=== PATIENT | male | born 1990 | race Hispanic/Latino ===

== ENCOUNTER 2020-05-12 11:55 | Emergency (ER) | payer SELFPAY ==
--- NOTE | 2020-05-12 14:24 | ER ---
Nurse's Notes [facility] Name: Bruno Flanagan Age: 29 yrs Sex: Male : 1990 Arrival Date: 05/12/2020 Time: 11:56 Bed Waiting Private MD: Diagnosis: Presentation: 05/12 12:08 Chief complaint: Patient states: Slipped on ice yesterday. Small piece of "rebar" ll1 punctured into the palm of his hand. PMS intact. <2 cm laceration, no bleeding. Coronavirus screen: Client denies travel out of the [place] in the last 14 days. At this time, the client does not indicate any symptoms associated with coronavirus-19. Ebola Screen: Patient denies travel to an Ebola-affected area in the 21 days before illness onset. Complicating Factors: Glass or an other foreign body is present in the wound. Initial Sepsis Screen: Does the patient meet any 2 criteria? No. Patient's initial sepsis screen is negative. Does the patient have a suspected source of infection? Yes: Skin breakdown/wound. Risk Assessment: Do you want to hurt yourself or someone else? Patient reports no desire to harm self or others. Onset of symptoms was May 11, 2020. 12:08 Method Of Arrival: Ambulatory ll1 12:08 Acuity: LAMAR 4 ll1 Historical: - Allergies: 12:10 No Known Allergies; ll1 - PMHx: 12:10 None; ll1 - PSHx: 12:10 L hand; ll1 - Immunization history:: Last tetanus immunization: > 10 years ago Flu vaccine is not up to date. - Social history:: Smoking status: Patient reports the use of cigarette tobacco products, smokes one-half pack cigarettes per day. Vital Signs: 12:08 BP 115 / 74; Pulse 86; Resp 17; Temp 98.3; Pulse Ox 98% ; Weight 86.18 kg; Height 6 ft. ll1 1 in. (185.42 cm); Pain 8/10; 12:08 Body Mass Index 25.07 (86.18 kg, 185.42 cm) ll1 ED Course: 11:56 Patient arrived in ED. as 12:09 Triage completed. ll1 12:10 Arm band placed on. ll1 14:16 Blake Piña PA is PHCP. 8 14:16 Mina Elaine MD is Attending Physician. jr8 Administered Medications: No medications were administered Outcome: 14:24 Patient left the ED. tw2 14:33 Patient left the ED. hb Signatures: Taylor Michelle Josh, PA PA jr8 Lacie Bruce RN RN Indira Ramsey RN RN tw2 Cliff Moya RN RN ll1
[2020-05-12 15:14] VITALS: BP 115/74; TEMP 98.3; O2SAT 98
== END 2020-05-12 14:33 | disposition left against medical advice (07) ==
LOC: ER 11:55
DX: Z53.21 Procedure and treatment not carried out due to patient leaving prior to being seen by health care provider (principal)
CPT/HCPCS: 99281

== ENCOUNTER 2021-07-07 15:16 | Emergency (ER) | payer BC ==
--- OUTSIDE RECORDS SUMMARY | 2021-07-07 15:18 | XMS REPORT | Continuity of Care Document ---
:1990 Author Organization [facility] t Address [address] [place] [address] Care Team Providers Name Role Phone RACHANA RUFFIN Attending Clinician Unavailable Problems This patient has no known problems. Allergies, Adverse Reactions, Alerts Allergy Allergy Status Severity Reaction(s) Onset Inactive Treating Comm ents Source Name Type Date Date Clinician NO KNOWN Drug Active [facility] Medications This patient has no known medications. Procedures This patient has no known procedures. Encounters Start End Encounter Admission Attending Care Care Encounter Source Date/Time Date/Time Type Type Clinicians Facility Department ID 2020-05-12 2020-05-12 Emergency X MIKALA RUFFIN ERT [id number] [facility] 14:34:00 14:34:00 RACHANA [facility] Results This patient has no known results.
[2021-07-07] MEDS ORDERED: ONDANSETRON 4 MG (ODT) TAB ONE (15:28)
[2021-07-07] MEDS ORDERED: FAMOTIDINE 20 MG/2 ML VIAL IV ONE (17:29)
[2021-07-07] MEDS ORDERED: ONDANSETRON 4 MG/2 ML VIAL ONE (17:29)
[2021-07-07] MEDS ORDERED: Ringers Lactate 1,000 ML IV ONE (17:29)
[2021-07-07 17:30] LABS: Hematocrit 48.2 % (39.6-49.0); Lymphocytes % 8.8 % (15.3-44.8); MPV 8.1 fL (7.6-11.3); RBC Red Blood Cell Count 4.88 M/uL (4.33-5.43)
[2021-07-07 17:45] LABS: Albumin 4.9 g/dL (3.4-5.0); Bilirubin Total 0.9 mg/dL (0.2-1.0)
--- NOTE | 2021-07-07 18:40 | ER ---
Nurse's Notes [facility] Name: Bruno Flanagan Age: 30 yrs Sex: Male : 1990 Arrival Date: 07/07/2021 Time: 15:18 Bed 10 Private MD: Diagnosis: Vomiting Presentation: 07/07 15:22 Chief complaint: Patient states: "I drank too much last night on any empty stomach." Pt ab2 states he drank less than a 12 pack of beers last night. This morning patient has not been able to keep anything down. Pt denies pain. Pt c/o shaking and vomiting. Coronavirus screen: Vaccine status: Patient reports being unvaccinated. Client denies travel out of the [place] in the last 14 days. At this time, the client does not indicate any symptoms associated with coronavirus-19. Ebola Screen: Patient negative for fever greater than or equal to 101.5 degrees Fahrenheit, and additional compatible Ebola Virus Disease symptoms Patient denies exposure to infectious person. Patient denies travel to an Ebola-affected area in the 21 days before illness onset. No symptoms or risks identified at this time. Initial Sepsis Screen: Does the patient meet any 2 criteria? No. Patient's initial sepsis screen is negative. Does the patient have a suspected source of infection? No. Patient's initial sepsis screen is negative. Risk Assessment: Do you want to hurt yourself or someone else? Patient reports no desire to harm self or others. Onset of symptoms is unknown. 15:22 Method Of Arrival: Ambulatory ab2 15:22 Acuity: LAMAR 4 ab2 17:25 Acuity: LAMAR 3 iw Triage Assessment: 15:26 General: Appears in no apparent distress. uncomfortable, Behavior is calm, cooperative, ab2 appropriate for age. Pain: Denies pain. Neuro: Level of Consciousness is awake, alert, obeys commands, Oriented to person, place, time, situation, Appropriate for age Wwe Wrestler are equal bilaterally Moves all extremities. Gait is steady, Speech is normal, Facial symmetry appears normal. Cardiovascular: No deficits noted. Denies chest pain, shortness of breath, Heart tones S1 S2 present Patient's skin is warm and dry. Respiratory: Airway is patent Respiratory effort is even, unlabored, Respiratory pattern is regular, symmetrical, Breath sounds are clear bilaterally. GI: Abdomen is round non-distended, Bowel sounds present X 4 quads. Reports nausea, vomiting, Patient currently denies abdominal pain. : No deficits noted. No signs and/or symptoms were reported regarding the genitourinary system. Derm: Skin is intact, is healthy with good turgor, Skin is pink, warm \\T\\ dry. Historical: - Allergies: 15:26 No Known Allergies; ab2 - PMHx: 15:26 None; ab2 - PSHx: 15:26 None; ab2 - Immunization history:: Adult Immunizations up to date. - Social history:: Smoking status: Patient reports the use of cigarette tobacco products, smokes one-half pack cigarettes per day. Screenin:27 Abuse screen: Denies threats or abuse. Denies injuries from another. Nutritional ab2 screening: No deficits noted. Tuberculosis screening: No symptoms or risk factors identified. Fall Risk None identified. Assessment: 17:25 Reassessment: pt still vomiting. iw 18:01 Reassessment: Patient appears in no apparent distress at this time. Patient and/or iw family updated on plan of care and expected duration. Pain level reassessed. Patient is alert, oriented x 3, equal unlabored respirations, skin warm/dry/pink. Patient states feeling better. Patient states symptoms have improved. 18:31 Reassessment: Patient appears in no apparent distress at this time. Patient and/or iw family updated on plan of care and expected duration. Pain level reassessed. Patient is alert, oriented x 3, equal unlabored respirations, skin warm/dry/pink. pt given water for PO challenge. Vital Signs: 15:22 BP 116 / 72; Pulse 63; Resp 17; Temp 97.5(TE); Pulse Ox 98% on R/A; Weight 86.18 kg; ab2 Height 6 ft. 0 in. (182.88 cm); Pain 0/10; 15:22 Body Mass Index 25.77 (86.18 kg, 182.88 cm) ab2 ED Course: 15:18 Patient arrived in ED. am2 15:21 Ramin Bhandari PA is PHCP. [facility] 15:21 José Turk DO is Attending Physician. jmm 15:26 Triage completed. ab2 15:26 Arm band placed on left wrist. ab2 15:27 No provider procedures requiring assistance completed. ab2 17:04 Lorraine Fischer, RN is Primary Nurse. iw 17:25 Initial lab(s) drawn, by me, sent to lab. Inserted saline lock: 20 gauge in right iw antecubital area, using aseptic technique. Blood collected. 17:27 CBC with Diff Sent. ab2 17:27 CMP Sent. ab2 17:27 Lipase Sent. ab2 17:30 Patient has correct armband on for positive identification. Bed in low position. Call ab2 light in reach. Side rails up X2. 18:45 IV discontinued, intact, bleeding controlled, No redness/swelling at site. Pressure iw dressing applied. Administered Medications: 15:27 Drug: Ondansetron 4 mg Route: PO; ab2 17:29 Drug: Lactated Ringers Solution 1000 ml Route: IV; Rate: 1000 bolus; Site: right ab2 antecubital; 17:30 Drug: Pepcid (famotidine) 20 mg Route: IVP; Site: right antecubital; ab2 17:30 Drug: Zofran (Ondansetron) 4 mg Route: IVP; Site: right antecubital; ab2 Outcome: 18:39 Discharge ordered by . fabián 18:45 Discharged to home ambulatory, with family. iw 18:45 Condition: good 18:45 Discharge instructions given to patient, Instructed on discharge instructions, follow up and referral plans. medication usage, Demonstrated understanding of instructions, follow-up care, medications, Prescriptions given X 1. 18:45 Patient left the ED. Signatures: Ramin Bhandari PA PA jmm Williams, Irene, RN RN Krystyna Bermudez Alexis ab2
--- NOTE | 2021-07-07 18:40 | EDPHYS ---
Physician Documentation [facility] Name: Bruno Flanagan Age: 30 yrs Sex: Male : 1990 Arrival Date: 07/07/2021 Time: 15:18 Bed 10 Private MD: ED Physician José Turk HPI: 07/07 15:24 This 30 yrs old Male presents to ER via Ambulatory with complaints of jmm Vomiting, shaky. 15:24 The patient presents to the emergency department with nausea, vomiting. Onset: The jmm symptoms/episode began/occurred acutely, today. Possible causes: alcohol. The symptoms are aggravated by nothing. The symptoms are alleviated by nothing. This is a 30 year old male with no chronic medical conditions that presents to the ED with complaints of vomiting, nausea. Patient states he drank too much ETOH last night. Patient states also feeling fatigued and shakey. Denies abdominal pain, diarrhea. . Historical: - Allergies: 15:26 No Known Allergies; ab2 - PMHx: 15:26 None; ab2 - PSHx: 15:26 None; ab2 - Immunization history:: Adult Immunizations up to date. - Social history:: Smoking status: Patient reports the use of cigarette tobacco products, smokes one-half pack cigarettes per day. ROS: 15:24 Constitutional: Negative for fever, chills, and weight loss, Cardiovascular: Negative jmm for chest pain, palpitations, and edema, Respiratory: Negative for shortness of breath, cough, wheezing, and pleuritic chest pain. 15:24 Abdomen/GI: Positive for vomiting. 15:24 All other systems are negative. Exam: 15:24 Constitutional: This is a well developed, well nourished patient who is awake, alert, jmm and in no acute distress. Head/Face: atraumatic. Eyes: EOMI, no conjunctival erythema appreciated ENT: Moist Mucus Membranes Neck: Trachea midline, Supple Chest/axilla: Normal chest wall appearance and motion. Cardiovascular: Regular rate and rhythm. No edema appreciated Respiratory: Normal respirations, no respiratory distress appreciated Abdomen/GI: Non distended, soft Back: Normal ROM 15:24 Skin: General appearance color normal MS/ Extremity: Moves all extremities, no obvious deformities appreciated, no edema noted to the lower extremities Neuro: Awake and alert Psych: Behavior is normal, Mood is normal, Patient is cooperative and pleasant 15:24 Abdomen/GI: Inspection: abdomen appears normal, Bowel sounds: normal, Palpation: abdomen is soft and non-tender, in all quadrants. Vital Signs: 15:22 BP 116 / 72; Pulse 63; Resp 17; Temp 97.5(TE); Pulse Ox 98% on R/A; Weight 86.18 kg; ab2 Height 6 ft. 0 in. (182.88 cm); Pain 0/10; 15:22 Body Mass Index 25.77 (86.18 kg, 182.88 cm) ab2 MDM: 15:24 Patient medically screened. [facility] 18:38 Data reviewed: vital signs, nurses notes. Counseling: I had a detailed discussion with [facility] the patient and/or guardian regarding: the historical points, exam findings, and any diagnostic results supporting the discharge/admit diagnosis, the need for outpatient follow up, to return to the emergency department if symptoms worsen or persist or if there are any questions or concerns that arise at home. ED course: Patient states feeling much better. No abdominal pain on palpation. patient advised to follow up with pcp and otherwise given strict return precautions. Patient understood and agrees with the plan of care. . 07/07 17:01 Order name: CBC with Diff; Complete Time: 17:35 [facility] 07/07 17:01 Order name: CMP; Complete Time: 17:48 [facility] 07/07 17:01 Order name: Lipase; Complete Time: 17:48 [facility] 07/07 16:20 Order name: PO challenge; Complete Time: 17:29 [facility] 07/07 17:01 Order name: IV Saline Lock; Complete Time: 17:27 [facility] 07/07 17:01 Order name: Labs collected and sent; Complete Time: 17:27 [facility] Administered Medications: 15:27 Drug: Ondansetron 4 mg Route: PO; ab2 17:29 Drug: Lactated Ringers Solution 1000 ml Route: IV; Rate: 1000 bolus; Site: right ab2 antecubital; 17:30 Drug: Pepcid (famotidine) 20 mg Route: IVP; Site: right antecubital; ab2 17:30 Drug: Zofran (Ondansetron) 4 mg Route: IVP; Site: right antecubital; ab2 Disposition: 07/08 15:33 Co-signature as Attending Physician, José Turk DO I was immediately available on-site ms3 in the Emergency Department for consultation in the care of the patient.. Disposition Summary: 07/07/21 18:39 Discharge Ordered Location: Home fabián Condition: Stable jordana Diagnosis - Vomiting jm Followup: jmartie - With: Private Physician - When: 2 - 3 days - Reason: Recheck today's complaints, Continuance of care, Re-evaluation by your physician Discharge Instructions: - Discharge Summary Sheet jordana - Vomiting, Adult jordana Forms: - Medication Reconciliation Form [facility] - Thank You Letter fabián - Antibiotic Education jordana - Prescription Opioid Use jordana Prescriptions: - ondansetron 4 mg Oral tablet,disintegrating - take 1 tablet by ORAL route every 4-6 hours; 20 tablet; Refills: 0, Product [facility] Selection Permitted Signatures: Dispatcher [employer] EDRamin Kelley PA PA jmm Sims, Marcus, DO DO ms3 Jay Meek2
[2021-07-07 20:34] VITALS: BP 116/72; TEMP 97.5; O2SAT 98
== END 2021-07-07 18:45 | disposition home or self-care (01) ==
LOC: ER 15:16
DX: R11.10 Vomiting, unspecified (principal); F17.210 Nicotine dependence, cigarettes, uncomplicated
CPT/HCPCS: 85025; 36415; 83690; 80053; 96375; 96374; 99284; J7120; J2405

== ENCOUNTER 2024-06-28 01:18 | Emergency (ER) | payer SELFPAY ==
[2024-06-28 02:26] LABS: Absolute Basophils 0.1 K/uL (0-0.5); Absolute Eosinophils 0.1 K/uL (0-0.5); Absolute Lymphocytes (CBC) 1.3 K/uL (0.7-4.9); Absolute Monocytes 0.8 K/uL (0.1-1.3); Absolute Neutrophil 4.8 K/uL (1.8-8.0); Basophils % 1.2 % (0-1.3); Eosinophils % 1.8 % (0-4.4); Hematocrit 43.7 % (39.6-49.0); Hemoglobin 15.4 g/dL (13.6-17.9); Lymphocytes % 17.9 % (15.3-44.8); MCHC 35.3 g/dL (32.0-36.0); MCV 99.2 fL (80-100); MPV 8.2 fL (7.6-11.3); Monocytes % 11.1 % (3.3-12.3); Nucleated Red Blood Cells % 0.1 % (0-0); Platelets 224 thou/uL (152-406); RBC Red Blood Cell Count 4.41 M/uL (4.33-5.43); Red Cell Distribution Width 12.9 % (12.1-15.2)
[2024-06-28 02:27] LABS: PT Prothrombin Time 11.7 SECONDS (10-13.0); Protime INR 1.03
[2024-06-28 03:33] LABS: ALT/SGPT 15 U/L (16-61); AST/SGOT 13 U/L (15-37); Albumin 4.1 g/dL (3.4-5.0); Alkaline Phosphatase 98 U/L (45-117); Anion Gap 12.7 mEq/L (5.0-15.0); BUN Blood Urea Nitrogen 7 mg/dL (7-18); Bicarbonate 23 mEq/L (21-32); Bilirubin Direct < 0.2 mg/dL (0-0.2); Bilirubin Indirect, Calculated 0.2 mg/dL (0.2-0.8); Bilirubin Total 0.4 mg/dL (0.2-1.0); Glomerular Filtration Rate 117 ml/min (=/>90); Glucose Level 89 mg/dL (74-106); Potassium 3.7 mEq/L (3.5-5.1); Protein, Total 8.1 g/dL (6.4-8.2); Sodium Level 142 mEq/L (136-145)
--- NOTE | 2024-06-28 03:59 | EDPHYS ---
Physician Documentation [facility] Name: Bruno Flanagan Age: 33 yrs Sex: Male : 1990 Arrival Date: 06/28/2024 Time: 01:18 Bed 15 Private MD: ED Physician Mina Elaine HPI: 06/28 01:40 This 33 yrs old Male presents to ER via EMS with complaints of Suicidal cp Ideation. 01:40 The patient presents to the emergency department with suicide ideation. cp 01:40 Onset: The symptoms/episode began/occurred today. cp 01:40 Past psychiatric history: Prior diagnosis: bipolar disorder, depression. Associated cp signs and symptoms: Pertinent negatives: abdominal pain, delusions, hallucinations, headache, homicidal ideation, paranoia. Severity of symptoms: in the emergency department the symptoms are unchanged despite home interventions. Historical: - Allergies: 01:25 No Known Allergies; vc1 - Home Meds: 01:25 Klonopin 1 mg Oral tab 1 tab 3 times per day [Active]; Lexapro 10 mg Oral tab 1 tab vc1 once daily [Active]; - PMHx: 01:37 Anxiety; Bipolar disorder; Depressive disorder; br2 - PSHx: 01:25 arm; vc1 - Immunization history:: Adult Immunizations not up to date. - Infectious Disease History:: Denies. - Social history:: Smoking status: Patient uses alcohol, on a daily basis. street drugs, marijuana. ROS: 01:45 Constitutional: Negative for body aches, chills, fever, poor PO intake, cp 01:45 Eyes: Negative for injury, pain, redness, and discharge, cp 01:45 ENT: Negative for drainage from ear(s), ear pain, sore throat, difficulty swallowing, difficulty handling secretions, 01:45 Cardiovascular: Negative for chest pain, palpitations, 01:45 Respiratory: Negative for cough, shortness of breath, wheezing, 01:45 Neuro: Negative for altered mental status, dizziness, headache, weakness, 01:45 Psych: Positive for suicidal ideation, 01:45 All other systems are negative, Exam: 01:43 ECG was reviewed by the Attending Physician. cp 01:48 Head/Face: Normocephalic, atraumatic. cp 01:48 Constitutional: The patient appears in no acute distress, alert, awake, non-diaphoretic, non-toxic, well developed, well nourished, 01:48 Eyes: Periorbital structures: appear normal, Conjunctiva: normal, no exudate, no injection, Sclera: no appreciated abnormality, Lids and lashes: appear normal, bilaterally, 01:48 ENT: External ear(s): are unremarkable, Nose: is normal, Mouth: Lips: moist, Oral mucosa: moist, Posterior pharynx: Airway: no evidence of obstruction, patent, 01:48 Chest/axilla: Inspection: normal, 01:48 Cardiovascular: Rate: normal, Rhythm: regular, Edema: is not appreciated, JVD: is not appreciated, 01:48 Respiratory: the patient does not display signs of respiratory distress, Respirations: normal, no use of accessory muscles, no retractions, labored breathing, is not present, Breath sounds: are clear throughout, no decreased breath sounds, no stridor, no wheezing, 01:48 Abdomen/GI: Inspection: abdomen appears normal, Palpation: abdomen is soft and non-tender, in all quadrants, 01:48 Neuro: Orientation: to person, place \T\ time. Mentation: is normal, Cerebellar function: is grossly normal, Motor: moves all fours, strength is normal, Sensation: is normal, Vital Signs: 01:33 BP 117 / 81; Pulse 84; Resp 18; Temp 97.4(TE); Pulse Ox 95% on R/A; Weight 81.65 kg; br2 Height 6 ft. 1 in. ; Pain 0/10; 12:20 BP 138 / 80; Pulse 64; Resp 20; Pulse Ox 100% ; kj2 12:20 Temp 98.1; kj2 21:31 BP 140 / 89; Pulse 70; Resp 18; Pulse Ox 93% on R/A; oe 22:35 BP 138 / 86; Pulse 72; Resp 20; Temp 98; Pulse Ox 100% on R/A; kj2 01:33 Body Mass Index 23.75 (81.65 kg, 185.42 cm) br2 01:33 Pain Scale: Adult br2 MDM: 01:25 Medical Screening Exam initiated cp 02:00 Differential diagnosis: drug withdrawal. acute psychotic break, depression, psychosis cp secondary to non-compliance. 04:00 Data reviewed: vital signs, nurses notes, lab test result(s). cp 22:20 ED course: VSS. Patient able to make informed decisions and reports he is no longer cp suicidal and requests discharge. 22:20 Independent interpretation of the following test(s) in the Emergency Department EKG: cp See my EKG interpretation above. Counseling: I had a detailed discussion with the patient and/or guardian regarding the historical points, exam findings, and any diagnostic results supporting the discharge/admit diagnosis, lab results, the need for outpatient follow up, a psychiatrist, to return to the emergency department if symptoms worsen or persist or if there are any questions or concerns that arise at home. Response to treatment: the patient's symptoms have markedly improved after treatment. 06/28 01:35 Order name: Acetaminophen; Complete Time: 03:54 cp 06/28 01:35 Order name: Basic Metabolic Panel; Complete Time: 03:54 cp 06/28 01:35 Order name: CBC with Diff; Complete Time: 03:54 cp 06/28 01:35 Order name: ETOH Level; Complete Time: 03:54 cp 06/28 01:35 Order name: Hepatic Function; Complete Time: 03:54 cp 06/28 01:35 Order name: PT-INR; Complete Time: 03:54 cp 06/28 01:35 Order name: Ptt, Activated; Complete Time: 03:54 cp 04 01:35 Order name: Salicylate; Complete Time: 03:54 cp 04 01:35 Order name: Urinalysis w/ reflexes cp 06/28 01:35 Order name: Urine Drug Screen; Complete Time: 10:00 cp 06/28 01:35 Order name: EKG - Nurse/Tech; Complete Time: 02:14 cp 06/28 01:35 Order name: IV Saline Lock; Complete Time: 02:14 cp 06/28 01:35 Order name: Labs collected and sent; Complete Time: 02:14 cp 06/28 01:35 Order name: Suicide Precautions; Complete Time: 02:14 cp 06/28 01:35 Order name: Suicide Screening (Porum); Complete Time: 02:14 cp EC:43 Rate is 50 beats/min. Rhythm is regular. VA interval is normal. QRS interval is normal. cp QT interval is normal. T waves are Inverted in lead aVR. Interpreted by me. Reviewed by me. Administered Medications: 04:09 Drug: NS 0.9% IV 1000 ml IV at 1000 ml once; to be given as a bolus over 60 minutes vc1 Route: IV; Rate: 1000 ml; Site: right forearm; 05:02 Follow up: IV Status: Completed infusion; IV Intake: 1000ml vc1 Disposition: 06/29 02:09 Co-signature as Attending Physician, Mina Elaine MD I agree with the assessment and hina plan of care. Disposition Summary: 06/28/24 22:22 Discharge Ordered Notes: Location: Home cp Problem: an ongoing problem(06/28/24 22:22) cp Symptoms: have improved(06/28/24 22:22) cp Condition: Stable(06/28/24 22:22) cp Diagnosis - Other recurrent depressive disorders cp Followup: cp - With: Santiago Aguilar MD - When: 2 - 3 days - Reason: Recheck today's complaints Discharge Instructions: - Discharge Summary Sheet cp - Suicidal Feelings: How to Help Yourself cp - Helping Someone Who is Suicidal cp - Supporting Someone With Depression cp - Managing Depression, Adult cp Forms: - Medication Reconciliation Form cp - Antibiotic Education cp - Prescription Opioid Use cp - Patient Portal Instructions cp - Leadership Thank You Letter cp Signatures: Dispatcher [employer] Mina Heredia MD MD cha Page, Corey, PA PA cp Calcote, Vanessa, RN RN vc1 Adelaida Ashley PA-C PAMalachi sb4 Vonda Lozoya RN RN br2 Corrections: (The following items were deleted from the chart) 06/28 01:36 01:35 ACETAMINOPHEN+C.LAB.BRZ ordered. EDMS EDMS 01:36 01:35 BASIC METABOLIC PANEL+C.LAB.BRZ ordered. EDMS EDMS 01:36 01:35 CBC+H.LAB.BRZ ordered. EDMS EDMS 01:36 01:35 ETHANOL+C.LAB.BRZ ordered. EDMS EDMS 01:36 01:35 HEPATIC FUNCTION+C.LAB.BRZ ordered. EDMS EDMS 01:36 01:36 PROTIME (+INR)+COAG.LAB.BRZ ordered. EDMS EDMS 01:36 01:36 PTT, ACTIVATED+COAG.LAB.BRZ ordered. EDMS EDMS 01:36 01:36 SALICYLATE+C.LAB.BRZ ordered. EDMS EDMS 01:36 01:36 Urinalysis+U.LAB.BRZ ordered. EDMS EDMS :36 01:36 URINE DRUG SCREEN+UC.LAB.BRZ ordered. EDMS EDMS 05:06/27 01:48 Constitutional: The patient appears in no acute distress, alert, awake, cp non-diaphoretic, non-toxic, well developed, well nourished, cp 06/28 05:06/27 01:48 Head/Face: Normocephalic, atraumatic. cp cp 06/28 05:06/27 01:48 Eyes: Periorbital structures: appear normal, Conjunctiva: normal, no cp exudate, no injection, Sclera: no appreciated abnormality, Lids and lashes: appear normal, bilaterally, cp 06/28 05:06/27 01:48 ENT: External ear(s): are unremarkable, Nose: is normal, Mouth: Lips: cp moist, Oral mucosa: moist, Posterior pharynx: Airway: no evidence of obstruction, patent, cp 06/28 05:06/27 01:48 Chest/axilla: Inspection: normal, cp cp 04/ 05: 04 01:48 Cardiovascular: Rate: normal, Rhythm: regular, Edema: is not appreciated, cp JVD: is not appreciated, cp / 05:06/27 01:48 Respiratory: the patient does not display signs of respiratory distress, cp Respirations: normal, no use of accessory muscles, no retractions, labored breathing, is not present, Breath sounds: are clear throughout, no decreased breath sounds, no stridor, no wheezing, cp 06/28 05:06/27 01:48 Abdomen/GI: Inspection: abdomen appears normal, Palpation: abdomen is soft cp and non-tender, in all quadrants, cp 06/28 04:06/27 01:48 Neuro: Orientation: to person, place \T\ time. Mentation: is normal, cp Cerebellar function: is grossly normal, Motor: moves all fours, strength is normal, Sensation: is normal, cp 04/ 22:22 03:59 doctor cp cp 22:22 03:59 Psych Facility cp cp 22:22 03:59 Higher level of care cp cp 22:22 03:59 Stable cp cp 22:22 03:59 new cp cp 03:59 are unchanged cp cp 03:59 Suicidal ideations cp cp
--- NOTE | 2024-06-28 03:59 | ER ---
Nurse's Notes [facility] [employer] Name: Bruno Flanagan Age: 33 yrs Sex: Male : 1990 Arrival Date: 06/28/2024 Time: 01:18 Bed 15 Private MD: Diagnosis: Other recurrent depressive disorders Presentation: 06/28 01:33 Chief complaint: Patient states: PT WAS AT A [employer]AS STATION AND CALLED [facility] BECAUSE br2 HE DIDIN'T WANT TO HURT HIMSELF. PT STATES HE ALWAYS FEELS SUICIDAL BUT IT WAS WORSE TONIGHT. PT ADMITS TO ETOH AND MARIJUANA, PT DENIES A PLAN, BUT ATTEMPTED TO HANG HIMSELF APPROX 1-2 YEARS. Coronavirus screen: Client denies travel out of the [place] in the last 14 days. Ebola Screen: Patient denies exposure to infectious person. Initial Sepsis Screen: Does the patient meet any 2 criteria? No. Patient's initial sepsis screen is negative. Does the patient have a suspected source of infection? No. Patient's initial sepsis screen is negative. Onset of symptoms was June 28, 2024 at 00:45. 01:33 Method Of Arrival: EMS: [facility] br2 01:33 Acuity: LAMAR 2 vc1 01:33 Risk Assessment: Do you want to hurt yourself or someone else? Patient reports br2 desire/thoughts of hurting themselves or someone else. Provider notified. Triage Assessment: 01:37 General: Appears uncomfortable, Behavior is calm, cooperative. Pain: Denies pain. br2 Historical: - Allergies: 01:25 No Known Allergies; vc1 - Home Meds: 01:25 Klonopin 1 mg Oral tab 1 tab 3 times per day [Active]; Lexapro 10 mg Oral tab 1 tab vc1 once daily [Active]; - PMHx: 01:37 Anxiety; Bipolar disorder; Depressive disorder; br2 - PSHx: 01:25 arm; vc1 - Immunization history:: Adult Immunizations not up to date. - Infectious Disease History:: Denies. - Social history:: Smoking status: Patient uses alcohol, on a daily basis. street drugs, marijuana. Screenin:25 [facility] ED Fall Risk Assessment (Adult) History of falling in the last 3 months, vc1 including since admission No falls in past 3 months (0 pts) Confusion or Disorientation No (0 pts) Intoxicated or Sedated Yes (3 pts) Impaired Gait No (0 pts) Mobility Assist Device Used No (0 pt) Altered Elimination No (0 pt) Score/Fall Risk Level 3 or more points = High Risk Oriented to surroundings, Maintained a safe environment, Educated pt \\T\\ family on fall prevention, incl call for assistance when getting out of bed, Offered frequent toileting (1:1 observation), Utilized family, sitter, or virtual panel sewer as indicated. Abuse screen: Denies threats or abuse. Nutritional screening: No deficits noted. Tuberculosis screening: No symptoms or risk factors identified. Assessment: 01:25 General: Appears in no apparent distress. uncomfortable, well groomed, Behavior is vc1 cooperative, anxious, Smells of alcohol. Pain: Complains of pain in left wrist Pain does not radiate. Neuro: Level of Consciousness is awake, alert, obeys commands, Oriented to person, place, time, situation, Appropriate for age. Cardiovascular: Capillary refill < 3 seconds. Cardiovascular: Heart tones S1 S2 present. Respiratory: Airway is patent Respiratory effort is even, unlabored, Respiratory pattern is regular, symmetrical, Breath sounds are clear bilaterally. GI: No deficits noted. No signs and/or symptoms were reported involving the gastrointestinal system. : No deficits noted. No signs and/or symptoms were reported regarding the genitourinary system. EENT: No deficits noted. No signs and/or symptoms were reported regarding the EENT system. Derm: Skin is intact, is healthy with good turgor, Skin is dry, Skin is normal, Skin temperature is warm. Musculoskeletal: Circulation, motion, and sensation intact. Range of motion: intact in all extremities. 03:53 Reassessment: Patient and/or family updated on plan of care and expected duration. Pain vc1 level reassessed. pt resting comfortably, no complaints at this time. 05:40 General: [place] at bedside. vc1 07:00 Reassessment: pt with eyes closed, respirations even and unlabored. easy to awake. kc6 08:00 Reassessment: Patient appears in no apparent distress at this time. No changes from kc6 previously documented assessment. Patient and/or family updated on plan of care and expected duration. Pain level reassessed. Patient is alert, oriented x 3, equal unlabored respirations, skin warm/dry/pink. 09:00 Reassessment: Patient appears in no apparent distress at this time. No changes from kc6 previously documented assessment. Patient and/or family updated on plan of care and expected duration. Pain level reassessed. Patient is alert, oriented x 3, equal unlabored respirations, skin warm/dry/pink. 10:00 Reassessment: Patient appears in no apparent distress at this time. No changes from kc6 previously documented assessment. Patient and/or family updated on plan of care and expected duration. Pain level reassessed. Patient is alert, oriented x 3, equal unlabored respirations, skin warm/dry/pink. 11:00 Reassessment: Patient appears in no apparent distress at this time. No changes from kc6 previously documented assessment. Patient and/or family updated on plan of care and expected duration. Pain level reassessed. Patient is alert, oriented x 3, equal unlabored respirations, skin warm/dry/pink. 12:00 Reassessment: Patient appears in no apparent distress at this time. No changes from kc6 previously documented assessment. Patient and/or family updated on plan of care and expected duration. Pain level reassessed. Patient is alert, oriented x 3, equal unlabored respirations, skin warm/dry/pink. 12:09 Reassessment: Patient appears in no apparent distress at this time. Patient and/or kj2 family updated on plan of care and expected duration. Pain level reassessed. Patient is alert, oriented x 3, equal unlabored respirations, skin warm/dry/pink. 13:00 Reassessment: Patient appears in no apparent distress at this time. Patient and/or kj2 family updated on plan of care and expected duration. Pain level reassessed. Patient is alert, oriented x 3, equal unlabored respirations, skin warm/dry/pink. 14:00 Reassessment: Patient appears in no apparent distress at this time. Patient and/or kj2 family updated on plan of care and expected duration. Pain level reassessed. Patient is alert, oriented x 3, equal unlabored respirations, skin warm/dry/pink. 15:00 Reassessment: Patient appears in no apparent distress at this time. Patient and/or kj2 family updated on plan of care and expected duration. Pain level reassessed. Patient is alert, oriented x 3, equal unlabored respirations, skin warm/dry/pink. 16:00 Reassessment: Patient appears in no apparent distress at this time. Patient and/or kj2 family updated on plan of care and expected duration. Pain level reassessed. Patient is alert, oriented x 3, equal unlabored respirations, skin warm/dry/pink. 17:00 Reassessment: Patient appears in no apparent distress at this time. Patient and/or kj2 family updated on plan of care and expected duration. Pain level reassessed. Patient is alert, oriented x 3, equal unlabored respirations, skin warm/dry/pink. 18:00 Reassessment: Patient appears in no apparent distress at this time. Patient and/or kj2 family updated on plan of care and expected duration. Pain level reassessed. Patient is alert, oriented x 3, equal unlabored respirations, skin warm/dry/pink. 19:00 Reassessment: Patient appears in no apparent distress at this time. Patient and/or kj2 family updated on plan of care and expected duration. Pain level reassessed. Patient is alert, oriented x 3, equal unlabored respirations, skin warm/dry/pink. 20:00 Reassessment: Patient appears in no apparent distress at this time. Patient and/or kj2 family updated on plan of care and expected duration. Pain level reassessed. Patient is alert, oriented x 3, equal unlabored respirations, skin warm/dry/pink. 21:00 Reassessment: Patient appears in no apparent distress at this time. Patient and/or kj2 family updated on plan of care and expected duration. Pain level reassessed. Patient is alert, oriented x 3, equal unlabored respirations, skin warm/dry/pink. 22:00 Reassessment: Patient appears in no apparent distress at this time. Patient and/or kj2 family updated on plan of care and expected duration. Pain level reassessed. Patient is alert, oriented x 3, equal unlabored respirations, skin warm/dry/pink. 22:33 Reassessment: Patient appears in no apparent distress at this time. Patient and/or kj2 family updated on plan of care and expected duration. Pain level reassessed. Patient is alert, oriented x 3, equal unlabored respirations, skin warm/dry/pink. 22:35 Reassessment: patient is leaving with family. kj2 Psych: 01:25 [place] Suicide Severity Screening: In the past month, have you wished you were vc1 or wished you could go to sleep and not wake up? Patient responds "yes." "In the past month, have you actually had any thoughts of killing yourself?" Patient responds "yes." "In your lifetime, have you ever done anything, started to do anything, or prepared to do anything to end your life?" Patient responds "yes." Patient reports suicidal intent occurred greater than 3 months prior. 01:25 Subjective: Patient's mood is sad, Delusions are denied, Hallucinations are denied vc1 Having thoughts of suicide. Plan for suicide is "there is always a plan". Objective: Patient is cooperative, Speech is normal, Affect is appropriate. Interventions: Removed personal items and placed in bag. Patient placed in hospital gown. Searched person for dangerous items. Belonging list filled out. Safety Checks: Personal items have been removed. Door is open. No visitors are present at this time. Patient uses Patient uses marijuana Last use was smoked tonight. Commitment: Patient will be a voluntary commitment. 12:22 [place] Suicide Severity Screening: In the past month, have you wished you were kj2 or wished you could go to sleep and not wake up? Patient responds "yes." "In the past month, have you actually had any thoughts of killing yourself?" Patient responds "yes." "In your lifetime, have you ever done anything, started to do anything, or prepared to do anything to end your life?" Patient responds "yes.". Subjective: Patient's mood is hopeless. Objective: Patient is cooperative, Speech is normal, Affect is appropriate. Interventions: Patient reassessed during use of restraints. Patient is physically safe. Safety Checks: patient room close to nurse station and sitter present. Patient uses unknown amount. Commitment: Patient will be a voluntary commitment. Vital Signs: 01:33 BP 117 / 81; Pulse 84; Resp 18; Temp 97.4(TE); Pulse Ox 95% on R/A; Weight 81.65 kg; br2 Height 6 ft. 1 in. ; Pain 0/10; 12:20 BP 138 / 80; Pulse 64; Resp 20; Pulse Ox 100% ; kj2 12:20 Temp 98.1; kj2 21:31 BP 140 / 89; Pulse 70; Resp 18; Pulse Ox 93% on R/A; oe 22:35 BP 138 / 86; Pulse 72; Resp 20; Temp 98; Pulse Ox 100% on R/A; kj2 01:33 Body Mass Index 23.75 (81.65 kg, 185.42 cm) br2 01:33 Pain Scale: Adult br2 ED Course: 01:19 Patient arrived in ED. jj6 01:25 Mala Bruce RN is Primary Nurse. vc1 01:25 Mina Gonzalez PA is PHCP. cp 01:25 Mina Elaine MD is Attending Physician. cp 01:25 Arm band placed on right wrist. vc1 01:25 Patient has correct armband on for positive identification. Bed in low position. vc1 Provided Education on: suicide precautions. Sitter at bedside. PO fluids given. sandwich and chips given. Patient is placed in psych hold. 01:37 Triage completed. br2 02:14 Warm blanket given. oe 02:14 Salicylate Sent. vc1 02:14 Ptt, Activated Sent. vc1 02:14 PT-INR Sent. vc1 02:14 Hepatic Function Sent. vc1 02:14 ETOH Level Sent. vc1 02:14 CBC with Diff Sent. vc1 02:14 Basic Metabolic Panel Sent. vc1 02:14 Acetaminophen Sent. vc1 02:25 EKG done, by ED staff, reviewed by Mina LE. oe 02:30 Inserted saline lock: 22 gauge in right forearm, using aseptic technique. Blood oe collected. Flushed with 10 mL NS. 04:21 called [facility] talked to Michelle. sp 05:36 [facility] here to talk with pt. sp 06:43 faxed patient clinical information to [facility] and [facility]. eb 07:00 Safety Checks: Personal items have been removed. The door is not opened, nor is patient vipul6 placed in a hallway bed/chair. There are no family/friend visitors at this time Sitter present at this time. 07:00 Report received from FELICITA Medeiros. kc6 07:00 Patient has correct armband on for positive identification. Bed in low position. Side kc6 rails up X2. Valuables inventory done. Locked in safe. See valuables checklist. Sitter at bedside. Door closed. Noise minimized. Visitors limited. Lights dimmed. Moved to private room. Warm blanket given. Pillow given. Verbal reassurance given. Patient is placed in psych hold. 12:00 Report given to Candice Vickers RN. kc6 22:02 re faxed chart to Psych facilities for placement. sp 22:22 Santiago Aguilar MD is Referral Physician. cp 22:35 No provider procedures requiring assistance completed. IV discontinued, intact, kj2 bleeding controlled, No redness/swelling at site. Pressure dressing applied. Administered Medications: 04:09 Drug: NS 0.9% IV 1000 ml IV at 1000 ml once; to be given as a bolus over 60 minutes vc1 Route: IV; Rate: 1000 ml; Site: right forearm; 05:02 Follow up: IV Status: Completed infusion; IV Intake: 1000ml vc1 Medication: 01:25 VIS not applicable for this client. vc1 Intake: 05:02 IV: 1000ml; Total: 1000ml. vc1 Outcome: 03:59 ER care complete, transfer ordered by MD. cp 22:22 Discharge ordered by MD. cp 22:35 Discharged to home ambulatory, with family, kj2 22:35 Condition: stable 22:35 Discharge instructions given to patient, family, Instructed on discharge instructions, follow up and referral plans. Demonstrated understanding of instructions, follow-up care, 22:47 Patient left the ED. kj2 Signatures: Glory Barrera Corey, PA PA Mark Sol Elizabeth eb Jeffries, Jennifer jj6 Mala Bruce RN RN vc1 Zeinab Brandt RN RN kc6 Vonda Lozoya RN RN br2 Candice Vickers, FELICITA RN kj2 Corrections: (The following items were deleted from the chart) 02:03 01:33 Acuity: LAMAR 3 br2 vc1 02:09 01:33 Chief complaint: br2 vc1 02:27 01:33 Risk Assessment: Do you want to hurt yourself or someone else? Patient reports no br2 desire to harm self or others. br2 22:45 22:44 Reassessment: patient is leaving with family kj2 kj2
[2024-06-28] MEDS ORDERED: NA CHLORIDE 0.9% 1,000 ML ONE (04:01)
[2024-06-28 05:24] LABS: Specific Gravity 1.011 (1.005-1.030); Urine Bilirubin NEGATIVE (Negative); Urine Blood Negative (Negative); Urine Clarity Clear (Clear); Urine Color Light-Yellow (Yellow); Urine Glucose NEGATIVE (Negative); Urine Ketones NEGATIVE (Negative); Urine Microscopic Reflex YN NO UMIC; Urine Nitrite NEGATIVE (Negative); Urine Protein NEGATIVE (Negative); Urine Urobilinogen Normal (Normal); Urine pH 5.5 (5.0-7.0)
[2024-06-28 05:48] LABS: Barbiturates NEGATIVE (NEGATIVE); Benzodiazepines NEGATIVE (NEGATIVE); Cocaine NEGATIVE (NEGATIVE); METHAMPHETAM NEGATIVE (NEGATIVE); Methadone NEGATIVE (NEGATIVE); Opiates NEGATIVE (NEGATIVE); Phencyclidine NEGATIVE (NEGATIVE); THC Cannibis POSITIVE (NEGATIVE)
[2024-06-28 23:14] VITALS: BP 138/86; TEMP 98; O2SAT 100
--- NOTE | 2024-06-29 11:31 | EKG ---
Test Date: 2024-06-28 Test Time: 01:36:29 [employer]: BETHANY MEASUREMENT RESULTS: Intervals: Rate: 50 AL: 164 QRSD: 92 QT: 438 QTc: 399 [place]: P: 67 AL: 164 QRS: 82 T: 43 INTERPRETIVE STATEMENTS: Sinus bradycardia Otherwise normal ECG No previous ECG available for comparison Electronically Signed On 06-29-24 11:29:04 CDT by Michael Olguin
== END 2024-06-28 22:47 | disposition home or self-care (01) ==
LOC: ER 01:18
DX: F33.8 Other recurrent depressive disorders (principal)
CPT/HCPCS: 36415; 80048; 80076; 80143; 80179; 80307; 81003; 82077; 85025; 85610; 85730; 93005; 96360; 99285; J7030